=== PATIENT | male | born 1980 | race Caucasian/White ===

== ENCOUNTER 2019-01-17 00:49 | Emergency (ER) | payer BC ==
[~2019-01-17] VITALS: Ht 170.2 cm; Wt 111.1 kg
[~2019-01-17 00:49] MED LIST: FLOMAX0.4 MG PO; HYDROCODONE-AP1 EAC6 PO; NORCO 5-325 TA1 EACH PO; ZOFRAN ODT4 MG PO
[2019-01-17] MEDS ORDERED: CLOMIPHENE CITR50 MG PO (00:58)
[2019-01-17] MEDS ORDERED: CIALIS5 MG PO (01:00)
[2019-01-17 02:45] VITALS: BP 113/71
== END 2019-01-17 02:45 | disposition home or self-care (01) ==
LOC: M.ERS 00:49
DX: G44.82 Headache associated with sexual activity (principal); Z90.49 Acquired absence of other specified parts of digestive tract